=== PATIENT | female | born 1945 | race Caucasian/White ===

== ENCOUNTER 2018-01-05 11:52 | Outpatient (CLI) | payer MEDICARE, OTHER | END 2018-01-05 11:53 | disposition short-term general hospital (02) | LOC: EMS 11:52 | PROVIDERS: ATTEND Surgery | DX: R06.02 Shortness of breath (principal); R07.89 Other chest pain; R53.1 Weakness; R11.2 Nausea with vomiting, unspecified; R42 Dizziness and giddiness | CPT/HCPCS: A0425; A0427 ==

== ENCOUNTER 2019-01-07 13:14 | Outpatient (CLI) | payer MEDICARE, OTHER ==
--- NOTE | 2019-01-07 13:46 | XRAY Report ---
Reason: PAIN SWELLING DORSAL LATERAL SURFACES Procedure Date: 01/07/2019 Accession Number: [id number] / [id number] Procedure: XR - Foot 3 View LT CPT Code: FULL RESULT: EXAM: LEFT FOOT RADIOGRAPHY EXAM DATE: 01/07/2019 01:31 PM. CLINICAL HISTORY: Left foot pain and swelling. COMPARISON: None. TECHNIQUE: 3 views. FINDINGS: Bones: No acute finding. Negative for fracture. Joints: Minimal left first MTP joint osteoarthritis. Soft Tissues: Normal. No soft tissue swelling. IMPRESSION: No acute finding. RADIA
== END 2019-01-07 13:15 | disposition home or self-care (01) ==
LOC: DI 13:14
PROVIDERS: ATTEND Podiatrist
DX: M19.072 Primary osteoarthritis, left ankle and foot (principal)

== ENCOUNTER 2019-01-20 12:11 | Outpatient (CLI) | payer MEDICARE, OTHER ==
--- NOTE | 2019-01-21 10:54 | MRI Report ---
Reason: PAIN AND EDEMA LEFT MID FOOT Procedure Date: 01/20/2019 Accession Number: [id number] / [id number] Procedure: MRI - Foot LT W/O CPT Code: FULL RESULT: EXAM: LEFT ANKLE/HINDFOOT MRI WITHOUT CONTRAST EXAM DATE: 01/20/2019 01:36 PM. CLINICAL HISTORY: Left foot pain and edema. COMPARISON: FOOT 3 VIEW LT 01/07/2019 1:16 PM. TECHNIQUE: Multiplanar, multisequence T1-weighted and fluid-sensitive sequences of the ankle/hindfoot without contrast. Other: None. FINDINGS: Bones: There are no visible fractures or foci of marrow edema. There is an os naviculare. Articular Cartilage: Unremarkable. Ligaments: The anterior and posterior tibiofibular, anterior and posterior talofibular, and calcaneofibular ligaments are intact. The deep and superficial deltoid and spring ligaments are intact. Anterior Tendons: The tibialis anterior, extensor hallucis longus, and extensor digitorum longus tendons are unremarkable. Medial Tendons: There is a longitudinal split of the tibialis posterior tendon extending from the proximal limit of the scan, to its distal attachment. There is fluid in the tendon sheath. The findings are suggestive of a partial-thickness tear and tenosynovitis. The remaining medial tendons appear normal. Lateral Tendons: The peroneus brevis and longus are unremarkable. Achilles Tendon: There is fusiform thickening of the Achilles tendon commencing approximately 1.5 cm proximal to its distal attachment. The thickened tendon measures up to 8 mm in anteroposterior span, suggestive of Achilles tendinosis. Musculature: No edema or fatty atrophy. Other: There is a small ankle and subtalar joint effusion with a posterior ganglion cyst measuring up to 7 x 15 x 4 mm. There is also an effusion of the talonavicular joint. The sinus tarsi demonstrates low T1 signal throughout with mild cyst formation in the bony margins. There is a 6 x 6 x 6 mm focal fluid collection immediately lateral to the sinus tarsi. 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 No plantar fasciitis. The subcutaneous tissues are unremarkable. IMPRESSION: 1. 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 2. Ankle, subtalar and talonavicular joint effusions without marrow edema. The combination of findings is of uncertain etiologies, and may be posttraumatic, or secondary to inflammatory arthropathy. 3. Partial thickness tear and tenosynovitis of the tibialis posterior. RADIA
== END 2019-01-20 12:12 | disposition home or self-care (01) ==
LOC: DI 12:11
PROVIDERS: ATTEND Podiatrist
DX: M25.472 Effusion, left ankle (principal); M25.475 Effusion, left foot; S96.812A Strain of other specified muscles and tendons at ankle and foot level, left foot, initial encounter; M65.9 Synovitis and tenosynovitis, unspecified

== ENCOUNTER 2020-04-26 06:31 | Outpatient (CLI) | payer MEDICARE, OTHER | END 2020-04-26 06:32 | disposition critical access hospital (66) | LOC: EMS 06:31 | PROVIDERS: ATTEND Surgery | DX: M25.562 Pain in left knee (principal); Z96.652 Presence of left artificial knee joint | CPT/HCPCS: A0425; A0429 ==

== ENCOUNTER 2020-04-26 06:46 | Emergency (ER) | payer MEDICARE, OTHER ==
[2020-04-26] MEDS ORDERED: HYDROmorphone 0.5 MG/0.5 ML SYRINGE IM STA (06:57)
[2020-04-26 07:45] LABS: BILIRUBIN,URINE NEGATIVE (NEGATIVE); GLUCOSE, URINE (UA) NEGATIVE (NEGATIVE); KETONES,URINE (UA) NEGATIVE (NEGATIVE); LEUKOCYTE ESTERASE, URINE SMALL (NEGATIVE); NITRITE,URINE POSITIVE (NEGATIVE); OCCULT BLOOD,URINE NEGATIVE (NEGATIVE); PH,URINE 6.5 PH (5.0-7.5); PROTEIN,URINE NEGATIVE (NEGATIVE); UROBILINOGEN,URINE 0.2 (NORMAL) E.U./dL (NORMAL)
[2020-04-26 07:47] LABS: CLARITY,URINE HAZY (CLEAR)
[2020-04-26 07:57] LABS: BACTERIA,URINE Many /HPF (None Seen); RBC,URINE 0-5 /HPF (0-5); SQUAMOUS EPITHELIAL CELL,UR FEW Squamous (<= Few); WBC CLUMPS,URINE PRESENT
[2020-04-26 07:58] LABS: CASTS, URINE 0-2 Hyaline Casts /LPF
[2020-04-26] MEDS ORDERED: KETOROLAC 30 MG/ML VIAL IVP STA (08:12)
[2020-04-26] MEDS ORDERED: ONDANSETRON 4 MG/2 ML VIAL IVP STA ×2 (08:12→17:31)
[2020-04-26] MEDS ORDERED: HYDROmorphone 1 MG/ML CARPUJECT IVP STA ×3 (08:12→16:51)
[2020-04-26] MEDS ORDERED: cefTRIAXone 1 GM in SODIUM CHLORIDE 0.9% MINIBAG 100 ML IV STA (08:22)
--- NOTE | 2020-04-26 08:30 | XRAY Report ---
PROCEDURE: Knee 2 View LT INDICATIONS: FALL WITH LEFT KNEE PAIN TECHNIQUE: 2 views of the left knee(s) were acquired. COMPARISON: None. FINDINGS: Bones: Postsurgical changes of tricompartmental knee arthroplasty. There is an acute oblique fracture through the supracondylar distal femoral metadiaphysis. The fracture line extends to the superolater al aspect of the prosthesis femoral component. The distal fracture fragment is displaced medially and posteriorly by approximately one complete shaft width in both directions. Soft tissues: No joint effusion. No suspicious soft tissue calcifications. IMPRESSION: Acute oblique fracture through the supracondylar femoral metadiaphysis with extension of fracture plane to the margin of the arthroplasty hardware. Reviewed by: Teo Christie MD on 04/26/2020 8:29 AM PDT Approved by: Teo Christie MD on 04/26/2020 8:29 AM PDT Station ID: [id number]
[2020-04-26] MEDS ORDERED: cefTRIAXone 1 GM VIAL ONE (08:43)
[2020-04-26] MEDS ORDERED: ENOXAPARIN 30 MG/0.3 ML SYRINGE SUBQ STA (12:31)
--- NOTE | 2020-04-26 14:38 | ED Physician Documentation ---
PD HPI LOWER EXT INJURY - Stated complaint Stated Complaint: GLF - Chief complaint Chief Complaint: Trauma Ext - History obtained from History obtained from: Patient - History of Present Illness PD HPI LOW EXT INJURY LOCATION: Left, Upper leg, Knee Type of injury: Fall Where injury occurred: Home Timing - onset: Today Timing - duration: Minutes Timing - details: Abrupt onset, Still present Improved by: Rest, Immobilization Worsened by: Moving, Palpating Associated symptoms: No: Weakness, Numbness, Tingling, Swelling Contributing factors: No: Anticoagulated Similar symptoms before: Has not had sx before Recently seen: Not recently seen - Additional information Additional information: 74-year-old female got up from her chair to go to the bathroom she had an incontinent episode and slipped in the urine sliding across the floor striking her foot on a marble base and breaking her leg. She is brought to the hospital by ambulance with pain directly above the knee and obvious fracture deformity. She has had a prosthesis placed at [facility] by Dr. Jackson and this was eventually revised by another orthopod at [facility]. Review of Systems Constitutional: denies: Fever Eyes: denies: Decreased vision Ears: denies: Ear pain Throat: denies: Sore throat Cardiac: denies: Chest pain / pressure, Palpitations Respiratory: denies: Dyspnea, Cough GI: denies: Nausea, Vomiting : reports: Incontinent. denies: Dysuria Skin: denies: Rash Musculoskeletal: reports: Extremity pain. denies: Neck pain, Back pain Neurologic: denies: Generalized weakness, Focal weakness, Numbness PD PAST MEDICAL HISTORY - Past Medical History Cardiovascular: Hypertension HEENT: Chronic vision loss Musculoskeletal: Chronic back pain - Past Surgical History Past Surgical History: Yes General: Appendectomy Ortho: Knee replacement HEENT: Tonsil/Adenoidectomy - Present Medications Home Medications: Ambulatory Orders Medication Instructions Recorded Confirmed amLODIPine [Norvasc] 5 mg PO DAILY 06/06/15 06/06/15 oxyCODONE/ACET 5/325 [Percocet 5 1 each PO Q4-6H PRN #15 tablet 06/06/15 mg/325 mg] - Allergies Allergies/Adverse Reactions: Allergies Allergy/AdvReac Type Severity Reaction Status Date / Time No Known Drug Allergies Allergy Verified 06/06/15 14:12 - Social History Does the pt smoke?: No Smoking Status: Never smoker Does the pt have substance abuse?: No - Immunizations Immunizations are current?: Yes PD ED PE NORMAL - Vitals Vital signs reviewed: Yes (tachy and hypertensive ) - General General: Alert and oriented X 3, No acute distress, Well developed/nourished - HEENT HEENT: Atraumatic, PERRL, EOMI - Neck Neck: Supple, no meningeal sign, No bony TTP - Cardiac Cardiac: RRR, No murmur - Respiratory Respiratory: No respiratory distress, Clear bilaterally - Abdomen Abdomen: Normal bowel sounds, Soft, Non tender, Non distended, No organomegaly - Back Back: No CVA TTP, No spinal TTP - Derm Derm: Normal color, Warm and dry, No rash - Extremities Extremities: Other (There is fracture deformity to the LLE with external rotation and shortening of the leg. There is pain and deformity above the left knee. Distal n/v intact. 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, No motor deficit, No sensory deficit, Normal speech Eye Opening: Spontaneous Motor: Obeys Commands Verbal: Oriented GCS Score: 15 - Psych Psych: Normal mood, Normal affect Results - Vitals Vitals: Vital Signs - 24 hr 04/26/20 04/26/20 04/26/20 06:57 07:00 09:00 Temperature 36.8 C Heart Rate 102 H 100 98 Respiratory 18 16 16 Rate Blood Pressure 190/80 H 149/83 H 155/78 H O2 Saturation 98 97 98 04/26/20 13:00 Temperature Heart Rate 90 Respiratory 16 Rate Blood Pressure 158/81 H O2 Saturation 98 Oxygen O2 Source Room air - Labs Labs: Laboratory Tests 04/26/20 04/26/20 04/26/20 06:35 15:01 15:01 WBC 9.0 RBC 4.53 Hgb 13.4 Hct 41.4 MCV 91.4 MCH 29.6 MCHC 32.4 RDW 12.3 Plt Count 195 MPV 9.1 Neut # (Auto) 6.1 Lymph # (Auto) 1.9 Christian # (Auto) 0.8 Eos # (Auto) 0.1 Baso # (Auto) 0.0 Absolute Nucleated RBC 0.00 Nucleated RBC % 0.0 Sodium 138 Potassium 4.2 Chloride 104 Carbon Dioxide 27 Anion Gap 7.0 BUN 20 Creatinine 0.7 Estimated GFR (MDRD) 82 L Glucose 114 H Calcium 9.3 Total Bilirubin 0.8 AST 20 ALT 25 Alkaline Phosphatase 65 Total Protein 7.1 Albumin 3.9 Globulin 3.2 Albumin/Globulin Ratio 1.2 Lipase 31 Urine Color LIGHT YELLOW Urine Clarity HAZY Urine pH 6.5 Ur Specific Morse 1.020 Urine Protein NEGATIVE Urine Glucose (UA) NEGATIVE Urine Ketones NEGATIVE Urine Occult Blood NEGATIVE Urine Nitrite POSITIVE H Urine Bilirubin NEGATIVE Urine Urobilinogen 0.2 (NORMAL) Ur Leukocyte Esterase SMALL H Urine RBC 0-5 Urine WBC 11-25 H Urine WBC Clumps PRESENT Ur Squamous Epith Cells FEW Squamous Urine Bacteria Many H Urine Casts 0-2 Hyaline Casts Ur Microscopic Review INDICATED Urine Culture Comments INDICATED - Rads (name of study) knee Radiology: Prelim report reviewed (Impression: Acute oblique fracture through the supracondylar femoral metaphyseal with extension of fracture plane to the margin of the arthroplasty hardware), EMP read indepedently, See rad report PD MEDICAL DECISION MAKING - ED course Complexity details: reviewed old records, reviewed results, re-evaluated patient, considered differential, d/w patient, d/w family ED course: 74-year-old female with a left prosthetic knee has had a fall in her home and she has broken her femur just proximal to the hardware. The fracture does extend to the hardware. This is a closed fracture. Shortly after arrival of the patient her images were shared with Dr. Maria and he recommended transfer the patient to a facility capable of the surgical complexity involved in this spe cific repair. We immediately called [facility] the patient's place of prior surgery and we were unable to make contact with any orthopedic physician at [facility]. We could not get past the transfer center. After 5 hours we called [facility] and had nearly the same problem and we called [facility] and were told they would answer as soon was possible and they had excessive patient load. The patient has tolerated the pain with IV Dilaudid. A Neal catheter is been placed she has evidence of urinary tract infection and she is administered Rocephin intravenously. She is in the emergency department for hours and she is given a dose of Lovenox subcutaneously 30 mg. [facility] calls us back and graciously agrees to accept the patient in transfer. Dr. Hager is the hospitalist and the patient will be admitted to the [facility]. Departure - Departure Disposition: 02 Transfer Acute Care Hosp Clinical Impression: Femur fracture, left Qualifiers: Encounter type: initial encounter Femur location: distal, unspecified portion Fracture type: closed Fracture morphology: other fracture Qualified Code(s): S72.492A - Other fracture of lower end of left femur, initial encounter for closed fracture Condition: Stable
[2020-04-26] MEDS ORDERED: SODIUM CHLORIDE 0.9% 1,000 ML IV STA (14:41)
[2020-04-26 15:10] LABS: BASOPHILS % (AUTO) 0.3 %; EOSINOPHILS # (AUTO) 0.1 10^3/uL (0.0-0.7); EOSINOPHILS % (AUTO) 0.6 %; HGB - HEMOGLOBIN 13.4 g/dL (12.0-16.0); LYMPHOCYTES # (AUTO) 1.9 10^3/uL (1.5-3.5); LYMPHOCYTES % (AUTO) 21.5 %; MEAN CORPUSCULAR HEMOGLOBIN 29.6 pg (27.0-31.0); MEAN CORPUSCULAR HGB CONC 32.4 g/dL (32.0-36.0); MEAN CORPUSCULAR VOLUME 91.4 fL (81.0-99.0); MEAN PLATELET VOLUME 9.1 fL (7.9-10.8); MONOCYTES # (AUTO) 0.8 10^3/uL (0.0-1.0); MONOCYTES % (AUTO) 9.3 %; NEUTROPHILS # (AUTO) 6.1 10^3/uL (1.5-6.6); NEUTROPHILS % (AUTO) 67.9 %; PLT - PLATELET COUNT 195 10^3/uL (130-450); RED BLOOD COUNT 4.53 10^6/uL (4.20-5.40); RED CELL DISTRIBUTION WIDTH 12.3 % (12.0-15.0)
[2020-04-26 15:22] LABS: ALBUMIN 3.9 g/dL (3.2-5.5); ALBUMIN/GLOBULIN RATIO 1.2 (1.0-2.2); BILIRUBIN,TOTAL 0.8 mg/dL (0.2-1.0); CALCIUM 9.3 mg/dL (8.5-10.3); CREATININE 0.7 mg/dL (0.4-1.0); TOTAL PROTEIN 7.1 g/dL (6.7-8.2)
[2020-04-26 17:54] VITALS: BP 174/100
== END 2020-04-26 17:51 | disposition short-term general hospital (02) ==
LOC: EDUNIT# → ED 06:46
DX: S72.452A Displaced supracondylar fracture without intracondylar extension of lower end of left femur, initial encounter for closed fracture (principal); M97.12XA Periprosthetic fracture around internal prosthetic left knee joint, initial encounter; W01.190A Fall on same level from slipping, tripping and stumbling with subsequent striking against furniture, initial encounter; Y93.01 Activity, walking, marching and hiking; Y92.009 Unspecified place in unspecified non-institutional (private) residence as the place of occurrence of the external cause; R32 Unspecified urinary incontinence; N39.0 Urinary tract infection, site not specified
CPT/HCPCS: 36415; 51702; 73560; 80053; 81001; 83690; 85025; 87086; 87181; 96361; 96365; 96372; 96375; 96376; 99285; J1170; J1650; 81003

== ENCOUNTER 2020-08-05 14:30 | Outpatient (CLI) | payer MEDICARE, OTHER ==
--- NOTE | 2020-08-06 09:00 | XRAY Report ---
PROCEDURE: Hip w/Pelvis 1V LT INDICATIONS: L HIP PX TECHNIQUE: AP pelvis with lateral view(s) of the bilateral hip(s). COMPARISON: Femur plain film same day.. FINDINGS: Bones: No hip fractures or dislocations. Pelvic ring appears intact. No suspicious bony lesions. Soft tissues: The visualized bowel gas pattern is normal. No suspicious soft tissue calcifications. IMPRESSION: No hip trauma found. Femoral fracture fixation plate and medullary michael again noted. Reviewed by: Gui Montalvo MD on 08/06/2020 8:59 AM PST Approved by: Gui Montalvo MD on 08/06/2020 8:59 AM PST Station ID: [id number]
--- NOTE | 2020-08-06 09:02 | XRAY Report ---
PROCEDURE: Knee 4 View LT INDICATIONS: L KNEE PX TECHNIQUE: 4 views of the left knee(s) were acquired. COMPARISON: None. FINDINGS: Bones: No acute fractures or dislocations. Prior fracture fixation devices are seen extending from the more proximal femur into the knee region, showing no evidence of device loosening or disruption. The arthroplasty on the left appears free of traumatic malalignment. No suspicious bony lesions. Soft tissues: No joint effusion. No suspicious soft tissue calcifications. IMPRESSION: Prior knee arthroplasty on the left, apparently more recent fracture fixation devices in cluding lateral plate and medullary michael. Virtual anatomic alignment. Reviewed by: Gui Montalvo MD on 08/06/2020 9:00 AM PST Approved by: Gui Montalvo MD on 08/06/2020 9:00 AM PST Station ID: [id number]
--- NOTE | 2020-08-06 09:03 | XRAY Report ---
PROCEDURE: Femur 2V LT INDICATIONS: L FEMUR PX TECHNIQUE: 4 views of the femur were acquired. COMPARISON: None. FINDINGS: Bones: No acute fractures or dislocations. No suspicious bony lesions. Prior fracture fixations rizvi ve been performed, including a lateral fixation plate with transverse screws and intramedullary michael. Presumed previously present knee arthroplasty components are free of disruption. Soft tissues: No suspicious soft tissue calcifications or masses. IMPRESSION: Normal alignment established after ORIF of a distal femoral fracture, no new injury found. Prior knee joint arthroplasty appears free of disruption. Normal alignment at the components. Reviewed by: Gui Montalvo MD on 08/06/2020 9:01 AM PST Approved by: Gui Montalvo MD on 08/06/2020 9:01 AM PST Station ID: [id number]
--- NOTE | 2020-08-06 09:04 | XRAY Report ---
PROCEDURE: Ankle 3 View LT INDICATIONS: L ANKLE PX TECHNIQUE: 3 views of the ankle were acquired. COMPARISON: Left foot plain films 01/07/2019 FINDINGS: Bones: No acute fractures or dislocations. Ankle mortise is normally aligned. No suspicious bony l esions. Lateral fracture fixation plate crosses the distal fibula. No malalignment seen. Healed frac ture in that area. No sign of device loosening or disruption. Soft tissues: No tibiotalar joint effusion. Achilles tendon appears normal. IMPRESSION: Healed distal fibular fracture with fixation plate in place. No sign of device loosening . Reviewed by: Gui Montalvo MD on 08/06/2020 9:03 AM PST Approved by: Gui Montalvo MD on 08/06/2020 9:03 AM PST Station ID: [id number]
== END 2020-08-05 23:59 | disposition home or self-care (01) ==
LOC: DI.N 14:30
PROVIDERS: ATTEND Orthopaedic Surgery
DX: M25.552 Pain in left hip (principal); M25.562 Pain in left knee; M25.572 Pain in left ankle and joints of left foot; M79.652 Pain in left thigh; Z96.652 Presence of left artificial knee joint; Z87.81 Personal history of (healed) traumatic fracture

== ENCOUNTER 2020-09-27 11:09 | Outpatient (CLI) | payer MEDICARE, OTHER ==
--- NOTE | 2020-09-24 16:07 | XRAY Report ---
PROCEDURE: Knee 4 View LT INDICATIONS: FRACTURE, LEFT KNEE JOINT TECHNIQUE: 4 views of the left knee(s) were acquired. COMPARISON: None. FINDINGS: Bones: There are postoperative changes of total left knee replacement. There is also been intramedull letitia michael placement with a side plate medially fixating a distal femoral metadiaphyseal fracture. Align ment is stable compared to prior x-ray on 08/05/2020. Soft tissues: No joint effusion. No suspicious soft tissue calcifications. IMPRESSION: Stable postoperative changes of the left knee. Reviewed by: Charles Forde on 09/24/2020 4:06 PM [facility] Approved by: Charles Forde on 09/24/2020 4:06 PM [facility] Station ID: [id number]
--- NOTE | 2020-09-24 16:10 | XRAY Report ---
PROCEDURE: Femur 2V LT INDICATIONS: INITIAL ENCOUNTER FOR CLOSED FX, LEFT FEMUR TECHNIQUE: 2 views of the femur were acquired. COMPARISON: 08/05/2020 FINDINGS: Bones: Postoperative changes of total left knee replacement, intramedullary michael placement, and side p late of the lateral left knee. There is no pericardial hardware lucency. Soft tissues: No suspicious soft tissue calcifications or masses. IMPRESSION: Postoperative changes with no complication and no change in alignment compared to . Reviewed by: Charles Forde on 09/24/2020 4:09 PM PST Approved by: Charles Forde on 09/24/2020 4:09 PM PST Station ID: [id number]
--- NOTE | 2020-09-24 16:12 | XRAY Report ---
PROCEDURE: Hip w/Pelvis 2-3V LT INDICATIONS: HIP PAIN, LEFT TECHNIQUE: AP pelvis with lateral view(s) of the left hip(s). COMPARISON: 08/05/2020 FINDINGS: Bones: Postoperative changes of the left femur are seen. There is no hardware complication. No surrou nding lucency to suggest loosening. Both hips have mild degenerative changes. Soft tissues: The visualized bowel gas pattern is normal. No suspicious soft tissue calcifications. IMPRESSION: Postoperative changes with no radiographic complication. Reviewed by: Charles Forde on 09/24/2020 4:11 PM PST Approved by: Charles Forde on 09/24/2020 4:11 PM PST Station ID: [id number]
== END 2020-09-27 23:59 | disposition home or self-care (01) ==
LOC: DI.N 11:09
PROVIDERS: ATTEND Orthopaedic Surgery
DX: S82.62XD Displaced fracture of lateral malleolus of left fibula, subsequent encounter for closed fracture with routine healing (principal); M16.0 Bilateral primary osteoarthritis of hip; Z96.652 Presence of left artificial knee joint

== ENCOUNTER 2021-08-17 17:10 | Outpatient (CLI) | payer MEDICARE, OTHER ==
--- NOTE | 2021-08-17 19:06 | XRAY Report ---
PROCEDURE: Ankle 3 View RT INDICATIONS: PAIN AND INSTABILITY OF RIGHT FOOT AND ANKLE TECHNIQUE: 3 views of the ankle were acquired. COMPARISON: None FINDINGS: Bones: Decreased mineralization. No fractures or dislocations. Ankle mortise is normally aligned. S mall plantar calcaneal spur. Mild degenerative change at the tibiotalar joint. No suspicious bony les ions. Soft tissues: No tibiotalar joint effusion. Achilles tendon appears normal. IMPRESSION: Mild degenerative tibiotalar joint changes. Reviewed by: Shaina Paul MD on 08/17/2021 7:04 PM PST Approved by: Shaina Paul MD on 08/17/2021 7:04 PM PST Station ID: [id number]
--- NOTE | 2021-08-17 19:07 | XRAY Report ---
PROCEDURE: Foot 3 View RT INDICATIONS: PAIN AND INSTABILITY OF RIGHT FOOT AND ANKLE TECHNIQUE: 3 views of the foot were acquired. COMPARISON: None FINDINGS: Bones: Decreased mineralization. No fractures or dislocations. No suspicious bony lesions. Soft tissues: No tibiotalar joint effusion. Achilles tendon appears normal. There are dystrophic c alcifications along the medial side of the hindfoot. IMPRESSION: 1. No fractures 2. Decreased mineralization. 3. Dystrophic calcifications along the medial hindfoot may indicate tendinopathy. Reviewed by: Shaina Paul MD on 08/17/2021 7:06 PM PST Approved by: Shaina Paul MD on 08/17/2021 7:06 PM PST Station ID: [id number]
== END 2021-08-17 17:11 | disposition home or self-care (01) ==
LOC: DI 17:10
PROVIDERS: ATTEND Podiatrist
DX: M19.071 Primary osteoarthritis, right ankle and foot (principal); M25.571 Pain in right ankle and joints of right foot

== ENCOUNTER 2022-04-12 14:25 | Outpatient (CLI) | payer MEDICARE, OTHER ==
[2022-04-12 14:55] LABS: CALCIUM 9.9 mg/dL (8.5-10.3); CREATININE 0.9 mg/dL (0.4-1.0); POTASSIUM 4.3 mmol/L (3.5-5.0)
== END 2022-04-12 14:26 | disposition home or self-care (01) ==
LOC: LAB 14:25
PROVIDERS: ATTEND Nurse Practitioner Acute Care
DX: I50.22 Chronic systolic (congestive) heart failure (principal)
CPT/HCPCS: 36415; 80048

== ENCOUNTER 2022-09-26 15:19 | Outpatient (CLI) | payer MEDICARE, OTHER ==
[2022-09-26 15:53] LABS: CALCIUM 9.4 mg/dL (8.5-10.3); CREATININE 0.8 mg/dL (0.4-1.0); POTASSIUM 4.2 mmol/L (3.5-5.0)
== END 2022-09-26 15:20 | disposition home or self-care (01) ==
LOC: LAB 15:19
PROVIDERS: ATTEND Nurse Practitioner Acute Care
DX: I42.8 Other cardiomyopathies (principal)
CPT/HCPCS: 36415; 80048

== ENCOUNTER 2023-04-17 15:26 | Outpatient (CLI) | payer MEDICARE, OTHER ==
[2023-04-17 15:49] LABS: HCT - HEMATOCRIT 42.4 % (37.0-47.0); HGB - HEMOGLOBIN 13.5 g/dL (12.0-16.0); MEAN CORPUSCULAR HEMOGLOBIN 29.5 pg (27.0-31.0); MEAN CORPUSCULAR HGB CONC 31.8 g/dL (32.0-36.0); MEAN CORPUSCULAR VOLUME 92.6 fL (81.0-99.0); MEAN PLATELET VOLUME 9.4 fL (7.9-10.8); RED BLOOD COUNT 4.58 10^6/uL (4.20-5.40); RED CELL DISTRIBUTION WIDTH 12.5 % (12.0-15.0); WHITE BLOOD COUNT 6.9 x10^3/uL (4.8-10.8)
[2023-04-17 16:02] LABS: CREATININE,URINE 49.6 mg/dL; MICROALBUM/CREATININE RATIO,UR 48.4 ug/mg (<30.0); MICROALBUMIN,URINE 2.4 mg/dL
[2023-04-17 16:23] LABS: ALBUMIN 4.2 g/dL (3.2-5.5); ALBUMIN/GLOBULIN RATIO 1.4 (1.0-2.2); ALKALINE PHOSPHATASE 68 IU/L (42-121); ALT ALANINE AMINOTRANSFERASE 12 IU/L (10-60); AST ASPARTATE AMINOTRANSFERASE 12 IU/L (10-42); BILIRUBIN,TOTAL 0.4 mg/dL (0.2-1.0); BUN - BLOOD UREA NITROGEN 19 mg/dL (6-20); CALCIUM 10.1 mg/dL (8.5-10.3); CARBON DIOXIDE - CO2 28 mmol/L (21-32); CHLORIDE 105 mmol/L (101-111); CHOL/HDL RATIO 4.9 (<4.4); CHOLESTEROL 277 mg/dL; CREATININE 0.7 mg/dL (0.6-1.3); GFR - MDRD 81 (>89); GLUCOSE 103 mg/dL (74-104); HDL CHOLESTEROL 56 mg/dL; POTASSIUM 4.7 mmol/L (3.5-4.5); SODIUM 139 mmol/L (135-145); TOTAL PROTEIN 7.3 g/dL (6.4-8.9); TRIGLYCERIDES 418 mg/dL (48-352)
[2023-04-17 16:37] LABS: LDL CHOLESTEROL,DIRECT 125 mg/dL (75-193); LDLD/HDL RATIO 2.2 (<4.4)
[2023-04-17 21:39] LABS: ESTIMATED AVERAGE GLUCOSE 103 mg/dL (70-100); HEMOGLOBIN A1c% 5.2 % (4.27-6.07)
== END 2023-04-17 15:27 | disposition home or self-care (01) ==
LOC: LAB 15:26
PROVIDERS: ATTEND Family Medicine
DX: I11.0 Hypertensive heart disease with heart failure (principal); I50.20 Unspecified systolic (congestive) heart failure; E78.49 Other hyperlipidemia; E11.69 Type 2 diabetes mellitus with other specified complication; D50.9 Iron deficiency anemia, unspecified
CPT/HCPCS: 36415; 80053; 80061; 82043; 82570; 83036; 83721; 85027